=== PATIENT | male | born 1990 | race Caucasian/White ===

== ENCOUNTER 2021-02-20 18:35 | Emergency (ER) | payer BC ==
[2021-02-20] MEDS ORDERED: ONDANSETRON HCL INJ 2MG/ML 2ML 2 MG/ML VIAL IV STA (18:46)
[2021-02-20] MEDS ORDERED: SODIUM CHLORIDE 0.9% 100 ML ONE (18:59)
[2021-02-20] MEDS ORDERED: ONDANSETRON HCL INJ 2MG/ML 2ML 2 MG/ML VIAL ONE (18:59)
[2021-02-20] MEDS ORDERED: CASIRIVIMAB/IMDEVIMAB 10 ML in SODIUM CHLORIDE 0.9% 100 ML IV ONE (19:00)
== END 2021-02-20 20:20 | disposition home or self-care (01) ==
LOC: ER 18:41
DX: U07.1 COVID-19 (principal); R06.00 Dyspnea, unspecified; R05 Cough
CPT/HCPCS: 99283; J2405; J7050